=== PATIENT | male | born 1940 | race Caucasian/White ===

== ENCOUNTER 2018-03-13 09:23 | Day surgery (SDC) ==
[2018-03-13] MEDS ORDERED: LIDOCAINE 1% 20 ML MDV ID STA (09:57)
[2018-03-13 10:15] VITALS: TEMP 97.6
[2018-03-13] MEDS ORDERED: DIPRIVAN 20 ML VIAL IVP ONE (11:00)
[2018-03-13] MEDS ORDERED: VERSED ONE (11:00)
--- NOTE | 2018-03-14 10:31 | OP ---
INDICATIONS FOR PROCEDURE: 78-year-old gentleman presents for colonoscopy exam. He has a history of adenomatous polyps with his last colonoscopy four years ago. He also has a family history of colon cancer involving his son in his 50' s. MEDICATIONS: SEE ANESTHESIA NOTES. PROCEDURE: COLONOSCOPY, SNARE POLYPECTOMY. REPORT: The risks, benefits, alternatives and limitations were discussed in detail with the patient. Informed consent was obtained. After adequate sedation was achieved, a digital rectal exam revealed good tone, no masses. The colonoscope was introduced into the rectum and advanced under direct visual guidance to the cecum. The cecum was identified by the appendiceal orifice and IC valve. I then slowly withdrew the scope in a circumferential manner examining the mucosa quite carefully. I looked on the proximal and distal side of folds and flexures as best as possible. I was able to retroflex the scope in the right colon as well as the left colon to increase visualization. In the descending colon there is a small diminutive 4 or 5 mm polyp that I removed and destroyed by snare technique. In the sigmoid area there is a surgical anastomosis that appeared unremarkable. In the rectum on retroflex view, there were two diminiutive polyps that I destroyed using a snare. No other abnormalities were noted on forward and retroflex views. The prep was good. The withdrawal time was 11 minutes and 48 seconds. The patient tolerated the procedure well with stable vital signs and pulse oximetry throughout. IMPRESSION: 1. THREE (3) DIMINUTIVE POLYPS REMOVED AND DESTROYED ABOVE. 2. UNREMARKABLE SURGICAL ANASTOMOSIS. RECOMMENDATIONS: 1. High fiber diet. 2. Office visit as needed. 3. Colonoscopy examination again in 5 years if he is clinically well, sooner if there are signs or symptoms to indicate otherwise. CC: DR. CINDY ALLEN
[2018-03-14 12:25] VITALS: BP 132/67
== END 2018-03-13 12:30 | disposition home or self-care (01) ==
LOC: SURG 09:23
PROVIDERS: ATTEND Internal Medicine Gastroenterology
DX: Z86.010 Personal history of colon polyps (principal); K63.5 Polyp of colon

== ENCOUNTER 2018-06-13 07:47 | Day surgery (SDC) ==
[2018-06-13] MEDS: TETRACAINE 0.5% UNIT-DOSE OP PRN ×2 (08:40→09:22)
[2018-06-13] MEDS: BETADINE OPTH PREP OP PRN ×2 (08:40→09:22)
[2018-06-13] MEDS: CYCLOGYL 2% OPTH OP PRN ×3 (08:41→08:51)
[2018-06-13] MEDS ORDERED: LIDOCAINE 1% 20 ML MDV ID STA (08:59)
[2018-06-13] MEDS ORDERED: BSS WITH EPINEPHRINE OP ONE (08:59)
[2018-06-13] MEDS ORDERED: ZOFRAN 4 MG/2 ML IVP ONE (08:59)
[2018-06-13] MEDS ORDERED: DEX-MOXI-KETOR OPTH INJ 1/0.5/0.4 MG/ML IO ONE (08:59)
[2018-06-13] MEDS ORDERED: LIDOCAINE 1%/PHENYLEPHRINE 1.5% BSS (SURGERY) INTRAOCULA ONE (08:59)
[2018-06-13 09:03] VITALS: TEMP 98.2
[2018-06-13] MEDS ORDERED: SUBLIMAZE ONE (09:15)
[2018-06-13] MEDS ORDERED: VERSED ONE (09:15)
[2018-06-19 12:42] VITALS: BP 117/65
== END 2018-06-13 10:35 | disposition home or self-care (01) ==
LOC: SURG 07:47
PROVIDERS: ATTEND Ophthalmology
DX: H25.812 Combined forms of age-related cataract, left eye (principal)

== ENCOUNTER 2018-07-11 10:09 | Day surgery (SDC) ==
[2018-07-11] MEDS: TETRACAINE 0.5% UNIT-DOSE OP PRN ×2 (10:30→11:44)
[2018-07-11] MEDS: BETADINE OPTH PREP OP PRN ×2 (10:31→11:44)
[2018-07-11] MEDS: CYCLOGYL 2% OPTH OP PRN ×3 (10:32→10:42)
[2018-07-11] MEDS ORDERED: LIDOCAINE 1%/PHENYLEPHRINE 1.5% BSS (SURGERY) INTRAOCULA ONE (11:12)
[2018-07-11] MEDS ORDERED: DEX-MOXI-KETOR OPTH INJ 1/0.5/0.4 MG/ML IO ONE (11:12)
[2018-07-11] MEDS ORDERED: BSS WITH EPINEPHRINE OP ONE (11:12)
[2018-07-11] MEDS ORDERED: ZOFRAN 4 MG/2 ML IVP ONE (11:12)
[2018-07-11] MEDS ORDERED: AK-DILATE 10% OPTH SOL OP PRN (11:44)
[2018-07-11] MEDS ORDERED: VERSED ONE (11:50)
[2018-07-11] MEDS ORDERED: SUBLIMAZE ONE (11:50)
[2018-07-11] MEDS ORDERED: ZOFRAN 4 MG/2 ML ONE (11:50)
[2018-07-13 06:39] VITALS: TEMP 98.5
[2018-07-13 16:00] VITALS: BP 112/78
== END 2018-07-11 13:10 | disposition home or self-care (01) ==
LOC: SURG 10:09
PROVIDERS: ATTEND Ophthalmology
DX: H25.811 Combined forms of age-related cataract, right eye (principal)